=== PATIENT | female | born 1955 | race African-American/Black ===

== ENCOUNTER 2016-11-02 16:06 | Emergency (ER) | payer BC ==
[~2016-11-02] VITALS: Ht 152.4 cm; Wt 56.7 kg
[~2016-11-02 16:06] MED LIST: ASPI-605 PO; ATEN100T PO; LEVE250T2 PO; LEVO75TA11 PO; PANT40SU PO; PHEN100C4 PO; SPIR50TA3 PO
--- NOTE | 2016-11-02 16:06 | NUR ---
"I FELT TIGHTNESS ON MY FACE AND NUMBNESS ON BOTH ARMS" X 3 DAYS. GOWNED PT. PLACED ON MONITOR. AWAITING MD ORDER
--- NOTE | 2016-11-02 16:23 | NUR ---
EKG IN PROGRESS
[2016-11-02 16:44] LABS: BASOPHILS # (AUTO) 0.1 /CMM (0.0-0.2); BASOPHILS % (AUTO) 1.1 % (0.0-2.0); EOSINOPHILS # (AUTO) 0.1 /CMM (0.0-0.7); EOSINOPHILS % (AUTO) 1.7 % (0.0-6.0); HEMATOCRIT 38 % (33-45); HEMOGLOBIN 12.6 g/dL (11.5-14.8); LYMPHOCYTES # (AUTO) 1.1 /CMM (0.8-4.8); LYMPHOCYTES % (AUTO) 20.3 % (20.0-44.0); MEAN CORPUSCULAR HEMOGLOBIN 31 PG (26.0-33.0); MEAN CORPUSCULAR HGB CONC 33 g/dl (31.0-36.0); MEAN CORPUSCULAR VOLUME 93 fL (82-100); MONOCYTES # (AUTO) 0.6 /CMM (0.1-1.30); MONOCYTES % (AUTO) 10.2 % (2.0-12.0); NEUTROPHILS # (AUTO) 3.6 /CMM (1.8-8.9); NEUTROPHILS % (AUTO) 66.7 % (43.0-81.0); PLATELET COUNT (AUTO) 302 /CMM (150-450); RDW COEFFICIENT OF VARIATION 13.8 (11.5-15.0); RED BLOOD CELL COUNT(AUTO) 4.09 MIL/uL (4.0-5.2); WHITE BLOOD COUNT (AUTO) 5.5 K/uL (4.3-11.0)
[2016-11-02 16:45] LABS: CALCIUM, SERUM 8.7 mg/dL (8.5-10.1); CARBON DIOXIDE 26 mmol/L (21-32); CHLORIDE 102 mmol/L (98-107); GLUCOSE 101 mg/dL (74-106); POTASSIUM 3.8 mmol/L (3.5-5.1); SODIUM SERUM 138 mmol/L (136-145); UREA NITROGEN, BLOOD 19 mg/dL (7-18)
[2016-11-02 16:54] LABS: TROPONIN I < 0.017 ng/mL (0.00-0.056)
[2016-11-02 17:18] LABS: THYROID STIMULATING HORMONE 0.707 uIU/mL (0.358-3.74)
[2016-11-02 17:27] LABS: PHENYTOIN (DILANTIN) 8.3 ug/ml (10.0-20.0)
[2016-11-02 17:35] VITALS: BP 148/92
== END 2016-11-02 17:36 | disposition home or self-care (01) ==
LOC: ER 16:09
DX: R20.2 Paresthesia of skin (principal); F41.9 Anxiety disorder, unspecified; Z88.8 Allergy status to other drugs, medicaments and biological substances; I10 Essential (primary) hypertension
CPT/HCPCS: 36415; 80048; 80185; 84439; 84443; 84484; 85025; 93005; 99285; A4606; Z7610

== ENCOUNTER 2017-11-04 14:07 | Emergency (ER) | payer BC ==
[~2017-11-04] VITALS: Ht 152.4 cm; Wt 59.0 kg
[~2017-11-04 14:07] MED LIST changes: -SPIR50TA3 PO; +SPIR50TA5 PO
--- NOTE | 2017-11-04 14:15 | NUR ---
BIB RA FROM WORK,WITNESSED SEIZURE, COMPLIANT W/ HER DILANTIN. NO ORAL TRAUMA NOTED. SEEN BY MD FOR EVAL. PT AAOX4. VSS. SAFETY AND COMFORT MEASURES PROVIDED. WILL MONITOR.
--- NOTE | 2017-11-04 16:20 | NUR ---
Pt ambulatory with a steady gait.
--- NOTE | 2017-11-04 16:39 | NUR ---
IV removed. Catheter intact and site benign. Pressure and 4x4 applied to site. No bleeding noted.
--- NOTE | 2017-11-04 16:41 | NUR ---
Patient discharged to home in stable condition. Written and verbal after care instructions given. Patient verbalizes understanding of instruction. Family member picked up patient to drive her home.
[2017-11-04 16:42] VITALS: BP 156/87
== END 2017-11-04 16:42 | disposition home or self-care (01) ==
LOC: ER 14:09
DX: G40.909 Epilepsy, unspecified, not intractable, without status epilepticus (principal); I10 Essential (primary) hypertension; F41.9 Anxiety disorder, unspecified; Z88.8 Allergy status to other drugs, medicaments and biological substances; Z79.82 Long term (current) use of aspirin; Z79.899 Other long term (current) drug therapy
CPT/HCPCS: 36415; 80185; 99283; A4606; Z7610

== ENCOUNTER 2017-11-21 09:50 | Emergency (ER) | payer BC ==
[~2017-11-21] VITALS: Ht 152.4 cm; Wt 58.5 kg
--- NOTE | 2017-11-21 10:00 | NUR ---
DIYA 89 FROM HOME C/O TINGLING AND CHEST TIGHTNESS SINCE THIS AM. ADMITS TO TAKING ENERGEY SUPPLEMENT THIS AM. A/OX 4, BREATHING EVEN AND UNLABORED. NO SOB, NAD, VITALS STABLE. NO NEURO DEFICITS NOTED. SAFETY AND COMFORT MEASURES IN PLACE. DR. CORDON AT BEDSIDE FOR EVAL.
[2017-11-21 10:23] LABS: BASOPHILS # (AUTO) 0.1 /CMM (0.0-0.2); BASOPHILS % (AUTO) 1.8 % (0.0-2.0); HEMATOCRIT 42 % (33-45); HEMOGLOBIN 13.5 g/dL (11.5-14.8); LYMPHOCYTES # (AUTO) 1.3 /CMM (0.8-4.8); LYMPHOCYTES % (AUTO) 33.6 % (20.0-44.0); MEAN CORPUSCULAR HEMOGLOBIN 30 PG (26.0-33.0); MEAN CORPUSCULAR HGB CONC 32 g/dl (31.0-36.0); MEAN CORPUSCULAR VOLUME 94 fL (82-100); MONOCYTES # (AUTO) 0.3 /CMM (0.1-1.30); MONOCYTES % (AUTO) 7.8 % (2.0-12.0); NEUTROPHILS # (AUTO) 2.1 /CMM (1.8-8.9); NEUTROPHILS % (AUTO) 53.8 % (43.0-81.0); PLATELET COUNT (AUTO) 314 /CMM (150-450); RED BLOOD CELL COUNT(AUTO) 4.45 MIL/uL (4.0-5.2); WHITE BLOOD COUNT (AUTO) 3.9 K/uL (4.3-11.0)
--- NOTE | 2017-11-21 10:30 | NUR ---
TURBINE ASSEMBLER AT BEDSIDE FOR BLOOD DRAW.
[2017-11-21 10:32] LABS: CALCIUM, SERUM 8.7 mg/dL (8.5-10.1); CARBON DIOXIDE 31 mmol/L (21-32); CHLORIDE 101 mmol/L (98-107); CREATININE 1.1 mg/dL (0.6-1.3); GLUCOSE 139 mg/dL (74-106); POTASSIUM 3.6 mmol/L (3.5-5.1); SODIUM SERUM 135 mmol/L (136-145); TROPONIN I < 0.017 ng/mL (0.00-0.056)
[2017-11-21 10:46] LABS: UREA NITROGEN, BLOOD 12 mg/dL (7-18)
[2017-11-21 11:21] VITALS: BP 138/92
--- NOTE | 2017-11-21 11:22 | NUR ---
Patient discharged to home in stable condition. Written and verbal after care instructions given. Patient verbalizes understanding of instruction.
== END 2017-11-21 11:22 | disposition home or self-care (01) ==
LOC: ER 09:51
DX: F41.0 Panic disorder [episodic paroxysmal anxiety] (principal); F45.8 Other somatoform disorders; I10 Essential (primary) hypertension; F41.9 Anxiety disorder, unspecified; E03.9 Hypothyroidism, unspecified; G40.909 Epilepsy, unspecified, not intractable, without status epilepticus; Z87.42 Personal history of other diseases of the female genital tract; Z88.8 Allergy status to other drugs, medicaments and biological substances; Z79.82 Long term (current) use of aspirin; Z79.899 Other long term (current) drug therapy
CPT/HCPCS: 36415; 80048; 84484; 85025; 93005; 99285; A4606; Z7610

== ENCOUNTER 2018-01-24 09:22 | Emergency (ER) | payer BC ==
[~2018-01-24] VITALS: Ht 152.4 cm; Wt 54.4 kg
--- NOTE | 2018-01-24 09:45 | NUR ---
PT BIB SELF. COMPLAINING OF "MY FACE WAS FEELING TINGLY AND IM FEELING A BIT WEAK. " PT AOX4. AMBULATORY W/STEADY GAIT. NO SOB NOTED. NO ACUTE DISTRESS NOTED. WILL CONTINUE TO MONITOR. WAITING FOR MD RODGERS.
--- NOTE | 2018-01-24 09:55 | NUR ---
AT BEDSIDE. URINE COLLECTED.
[2018-01-24 10:09] LABS: BASOPHILS % (AUTO) 1.5 % (0.0-2.0); EOSINOPHILS % (AUTO) 1.9 % (0.0-6.0); HEMATOCRIT 41 % (33-45); LYMPHOCYTES # (AUTO) 0.7 /CMM (0.8-4.8); MEAN CORPUSCULAR HGB CONC 35 g/dl (31.0-36.0); MEAN CORPUSCULAR VOLUME 95 fL (82-100); MONOCYTES # (AUTO) 0.3 /CMM (0.1-1.30); MONOCYTES % (AUTO) 9.4 % (2.0-12.0); NEUTROPHILS # (AUTO) 1.8 /CMM (1.8-8.9); NEUTROPHILS % (AUTO) 63.2 % (43.0-81.0); PLATELET COUNT (AUTO) 238 /CMM (150-450); RED BLOOD CELL COUNT(AUTO) 4.29 MIL/uL (4.0-5.2); WHITE BLOOD COUNT (AUTO) 2.8 K/uL (4.3-11.0)
[2018-01-24 10:10] LABS: APPEARANCE,URINE Clear (CLEAR); BILIRUBIN,URINE Negative (NEGATIVE); BLOOD, URINE Trace-intact Ery/uL (NEGATIVE); COLOR,URINE Yellow (YELLOW); KETONES,URINE Negative (NEGATIVE); LEUKOCYTE ESTERASE ,URINE Small (NEGATIVE); NITRITE, URINE Negative (NEGATIVE); PH,URINE 5.5 (5.0-8.0); PROTEIN,URINE Negative (NEGATIVE); UGLUCOSE Negative (NEGATIVE); UROBILINOGEN,URINE 0.2 EU/dL (0.2)
[2018-01-24 10:16] LABS: BACTERIA,URINE Few /HPF (None Seen); SQUAMOUS EPITHELIAL CELL,UR Few /HPF (None Seen)
[2018-01-24 10:22] LABS: ALANINE AMINOTRANSFERASE 25 U/L (12-78); ALBUMIN 3.7 g/dL (3.4-5.0); ALCOHOL, BLOOD < 3 mg/dL (0-0); ALKALINE PHOSPHATASE 81 U/L (46-116); ASPARTATE AMINOTRANSFERASE 21 U/L (15-37); BILIRUBIN,DIRECT 0.1 mg/dL (0.0-0.2); BILIRUBIN,TOTAL 0.2 mg/dL (0.2-1.0); CARBON DIOXIDE 32 mmol/L (21-32); CHLORIDE 102 mmol/L (98-107); GLUCOSE 117 mg/dL (74-106); POTASSIUM 3.4 mmol/L (3.5-5.1); SODIUM SERUM 140 mmol/L (136-145); TOTAL PROTEIN, SERUM 7.9 g/dL (6.4-8.2); UREA NITROGEN, BLOOD 11 mg/dL (7-18)
[2018-01-24 10:24] LABS: PHENYTOIN (DILANTIN) 7.4 ug/ml (10.0-20.0)
[2018-01-24 10:46] VITALS: BP 148/98
== END 2018-01-24 10:47 | disposition home or self-care (01) ==
LOC: ER 09:27
DX: R20.2 Paresthesia of skin (principal); R79.1 Abnormal coagulation profile; I10 Essential (primary) hypertension; F41.9 Anxiety disorder, unspecified; G40.909 Epilepsy, unspecified, not intractable, without status epilepticus; Z88.8 Allergy status to other drugs, medicaments and biological substances; Z79.82 Long term (current) use of aspirin; Z79.899 Other long term (current) drug therapy
CPT/HCPCS: 36415; 71045-TC; 80048-TC; 80076-TC; 80185-TC; 81000-TC; 85025-TC; 87086-TC; A4606; G0480; Z7610

== ENCOUNTER 2018-02-17 04:59 | Emergency (ER) | payer BC ==
[~2018-02-17] VITALS: Ht 152.4 cm; Wt 54.4 kg
--- NOTE | 2018-02-17 05:05 | NUR ---
PT CAME TO THE ER WITH THE COMPLAINT OF FAST HEART RATE, PT PLACED ON MONITOR HR WITHIN NORMAL LIMITS, BP ELEVATED. PT APPEARED ANXIOUS PER TRIAGE PT VAPED CBD APPRENTICE/LINEMAN.
--- NOTE | 2018-02-17 05:10 | NUR ---
DR. CLARKE AT BEDSIDE.
[2018-02-17] MEDS ORDERED: LABETALOL HCL (100MG) 100 MG TABLET ONE (05:30)
[2018-02-17] MEDS ORDERED: LORAZEPAM 1 MG TABLET ONE (05:30)
[2018-02-17] MEDS ORDERED: LABETALOL HCL (100MG) 100 MG TABLET PO ONE (05:30)
[2018-02-17] MEDS ORDERED: LORAZEPAM 1 MG TABLET PO ONE (05:30)
--- NOTE | 2018-02-17 05:30 | NUR ---
PT BP DOWNWARD TRENDING, STILL ELEVATED. AWARE.
--- NOTE | 2018-02-17 05:35 | NUR ---
HR 93, BP 164/127, SPO2 98%, RR 14
--- NOTE | 2018-02-17 05:43 | NUR ---
BP 164/107, SPO2- 97% RR- 14 HR- 81
[2018-02-17 06:47] VITALS: BP 141/99
== END 2018-02-17 06:48 | disposition home or self-care (01) ==
LOC: ER 05:01
DX: I10 Essential (primary) hypertension (principal); R00.2 Palpitations; F41.9 Anxiety disorder, unspecified; R00.0 Tachycardia, unspecified; R56.9 Unspecified convulsions; E28.2 Polycystic ovarian syndrome; F17.200 Nicotine dependence, unspecified, uncomplicated; Z79.82 Long term (current) use of aspirin; Z88.8 Allergy status to other drugs, medicaments and biological substances
CPT/HCPCS: A4606; Z7610

== ENCOUNTER 2018-03-30 11:13 | Emergency (ER) | payer BC ==
[~2018-03-30] VITALS: Ht 149.9 cm; Wt 52.2 kg
[2018-03-30] MEDS ORDERED: CLONIDINE HCL 0.1 MG TABLET PO ONE (11:30)
[2018-03-30 11:40] LABS: BASOPHILS % (AUTO) 1.2 % (0.0-2.0); EOSINOPHILS % (AUTO) 1.8 % (0.0-6.0); HEMATOCRIT 41 % (33-45); HEMOGLOBIN 13.9 g/dL (11.5-14.8); LYMPHOCYTES # (AUTO) 0.8 /CMM (0.8-4.8); LYMPHOCYTES % (AUTO) 24.7 % (20.0-44.0); MEAN CORPUSCULAR HGB CONC 34 g/dl (31.0-36.0); MEAN CORPUSCULAR VOLUME 97 fL (82-100); MONOCYTES # (AUTO) 0.3 /CMM (0.1-1.30); MONOCYTES % (AUTO) 8.1 % (2.0-12.0); NEUTROPHILS # (AUTO) 2.2 /CMM (1.8-8.9); NEUTROPHILS % (AUTO) 64.2 % (43.0-81.0); PLATELET COUNT (AUTO) 268 /CMM (150-450); RED BLOOD CELL COUNT(AUTO) 4.26 MIL/uL (4.0-5.2); WHITE BLOOD COUNT (AUTO) 3.4 K/uL (4.3-11.0)
[2018-03-30 11:47] LABS: CALCIUM, SERUM 9.3 mg/dL (8.5-10.1); CREATININE 0.9 mg/dL (0.6-1.3); POTASSIUM 3.9 mmol/L (3.5-5.1)
[2018-03-30 12:50] VITALS: BP 151/97
== END 2018-03-30 12:51 | disposition home or self-care (01) ==
LOC: ER 11:15
DX: I10 Essential (primary) hypertension (principal); E07.9 Disorder of thyroid, unspecified; F41.9 Anxiety disorder, unspecified; F17.200 Nicotine dependence, unspecified, uncomplicated; Z79.899 Other long term (current) drug therapy; Z79.82 Long term (current) use of aspirin; Z88.8 Allergy status to other drugs, medicaments and biological substances
CPT/HCPCS: 36415; 80048-TC; 85025-TC

== ENCOUNTER 2018-07-13 11:47 | Emergency (ER) | payer BC ==
[~2018-07-13] VITALS: Ht 152.4 cm; Wt 59.4 kg
[~2018-07-13 11:47] MED LIST changes: -LEVE250T2 PO; -PANT40SU PO
--- NOTE | 2018-07-13 12:18 | NUR ---
patient wheeled for ct scan.
[2018-07-13 12:20] LABS: BASOPHILS % (AUTO) 0.3 % (0.0-2.0); EOSINOPHILS % (AUTO) 0.2 % (0.0-6.0); HEMATOCRIT 44 % (33-45); HEMOGLOBIN 14.9 g/dL (11.5-14.8); LYMPHOCYTES # (AUTO) 0.5 /CMM (0.8-4.8); LYMPHOCYTES % (AUTO) 5.4 % (20.0-44.0); MEAN CORPUSCULAR HGB CONC 34 g/dl (31.0-36.0); MEAN CORPUSCULAR VOLUME 96 fL (82-100); MONOCYTES # (AUTO) 0.5 /CMM (0.1-1.30); MONOCYTES % (AUTO) 4.9 % (2.0-12.0); NEUTROPHILS # (AUTO) 8.3 /CMM (1.8-8.9); NEUTROPHILS % (AUTO) 89.2 % (43.0-81.0); PLATELET COUNT (AUTO) 293 /CMM (150-450); WHITE BLOOD COUNT (AUTO) 9.3 K/uL (4.3-11.0)
[2018-07-13 12:26] LABS: CALCIUM, SERUM 8.8 mg/dL (8.5-10.1)
--- NOTE | 2018-07-13 12:30 | NUR ---
PATIENT BIB [id number], C/O SOW & NAUSEA. PT STS POSSIBLY HAD SZ LAST NIGHT, WOKE UP W/ SEVERE DIZZINESS & DRIED BLOOD ON CHEEK, NO TONGUE LAC SEEN. ON ROOM AIR, BREATHING EVENLY AND UNLABORED. KEPT COMFORTABLE, WILL CONTINUE TO MONITOR ACCORDINGLY,
[2018-07-13] MEDS ORDERED: KETOROLAC TROMETHAMINE 15 MG/ML VIAL ONE (13:41)
[2018-07-13 15:47] VITALS: BP 145/88
--- NOTE | 2018-07-13 15:51 | NUR ---
Patient discharged to home in stable condition. Written and verbal after care instructions given. Patient verbalizes understanding of instruction.IV removed. Catheter intact and site benign. Pressure and 4x4 applied to site. No bleeding noted.
== END 2018-07-13 15:51 | disposition home or self-care (01) ==
LOC: ER 11:49
DX: G40.909 Epilepsy, unspecified, not intractable, without status epilepticus (principal); R51 Headache; I10 Essential (primary) hypertension; F41.9 Anxiety disorder, unspecified; F17.200 Nicotine dependence, unspecified, uncomplicated; Z79.82 Long term (current) use of aspirin; Z88.6 Allergy status to analgesic agent
CPT/HCPCS: 36415; 70450-TC; 71045-TC; 80048-TC; 80185-TC; 85025-TC; J1885

== ENCOUNTER 2018-07-16 16:46 | Emergency (ER) | payer BC ==
[~2018-07-16] VITALS: Ht 165.1 cm; Wt 65.4 kg
--- NOTE | 2018-07-16 17:00 | NUR ---
AAOX3, BIBRA FROM WORK C/O HYPERTENSION. RR IS EVEN AND UNLABORED WITH NAD NOTED. SKIN IS WARM AND DRY. AWAITING MD FOR EVAL. PLACED ON THE MONITOR.
[2018-07-16 17:27] LABS: BASOPHILS % (AUTO) 0.9 % (0.0-2.0); EOSINOPHILS % (AUTO) 1.3 % (0.0-6.0); HEMATOCRIT 41 % (33-45); HEMOGLOBIN 13.7 g/dL (11.5-14.8); LYMPHOCYTES % (AUTO) 20.5 % (20.0-44.0); MEAN CORPUSCULAR HGB CONC 34 g/dl (31.0-36.0); MEAN CORPUSCULAR VOLUME 98 fL (82-100); MONOCYTES # (AUTO) 0.4 /CMM (0.1-1.30); MONOCYTES % (AUTO) 8.2 % (2.0-12.0); NEUTROPHILS # (AUTO) 3.5 /CMM (1.8-8.9); NEUTROPHILS % (AUTO) 69.1 % (43.0-81.0); PLATELET COUNT (AUTO) 256 /CMM (150-450); RED BLOOD CELL COUNT(AUTO) 4.21 MIL/uL (4.0-5.2)
[2018-07-16] MEDS ORDERED: NIMODIPINE (30MG) 30 MG CAPSULE ONE (17:30)
[2018-07-16] MEDS ORDERED: NIMODIPINE (30MG) 30 MG CAPSULE PO ONE (17:30)
[2018-07-16 17:38] LABS: APPEARANCE,URINE Clear (CLEAR); BILIRUBIN,URINE Negative (NEGATIVE); BLOOD, URINE Trace-intact Ery/uL (NEGATIVE); COLOR,URINE Yellow (YELLOW); KETONES,URINE Negative (NEGATIVE); LEUKOCYTE ESTERASE ,URINE Negative (NEGATIVE); NITRITE, URINE Negative (NEGATIVE); PROTEIN,URINE Trace mg/dl (NEGATIVE); UGLUCOSE Negative (NEGATIVE); UROBILINOGEN,URINE 0.2 EU/dL (0.2)
[2018-07-16 17:39] LABS: BACTERIA,URINE Few /HPF (None Seen); SQUAMOUS EPITHELIAL CELL,UR Few /HPF (None Seen); WBC,URINE 0-2 /HPF (0-3)
[2018-07-16 17:48] LABS: CALCIUM, SERUM 8.8 mg/dL (8.5-10.1); CARBON DIOXIDE 27 mmol/L (21-32); CHLORIDE 103 mmol/L (98-107); GLUCOSE 162 mg/dL (74-106); POTASSIUM 3.7 mmol/L (3.5-5.1); SODIUM SERUM 142 mmol/L (136-145); UREA NITROGEN, BLOOD 12 mg/dL (7-18)
[2018-07-16 17:54] LABS: ALANINE AMINOTRANSFERASE 28 U/L (12-78); ALBUMIN 3.6 g/dL (3.4-5.0); ALKALINE PHOSPHATASE 92 U/L (46-116); ASPARTATE AMINOTRANSFERASE 26 U/L (15-37); BILIRUBIN,DIRECT 0.1 mg/dL (0.0-0.2); BILIRUBIN,TOTAL 0.3 mg/dL (0.2-1.0); TOTAL PROTEIN, SERUM 7.8 g/dL (6.4-8.2)
--- NOTE | 2018-07-16 19:15 | NUR ---
REPORT GIVEN TO ELENO GARSIA FOR FABIOLA.
--- NOTE | 2018-07-16 19:55 | NUR ---
Patient is resting comfortably in bed. Easily aroused. VSS. NAD. AA/OX4
--- NOTE | 2018-07-16 20:05 | NUR ---
Patient discharged to home in stable condition. Written and verbal after care instructions given. Patient verbalizes understanding of instruction. IV removed. Catheter intact and site benign. Pressure and 4x4 applied to site. No bleeding noted. AMBULATED WITH STABLE GAIT. NAD. VSS
[2018-07-16 20:06] VITALS: BP 158/80
== END 2018-07-16 20:07 | disposition home or self-care (01) ==
LOC: ER 16:50
DX: I16.0 Hypertensive urgency (principal); R51 Headache; E03.9 Hypothyroidism, unspecified; R56.9 Unspecified convulsions; F41.9 Anxiety disorder, unspecified; F17.200 Nicotine dependence, unspecified, uncomplicated; Z79.82 Long term (current) use of aspirin; Z88.8 Allergy status to other drugs, medicaments and biological substances
CPT/HCPCS: 36415; 70450-TC; 71045-TC; 80048-TC; 80076-TC; 81000-TC; 84484-TC; 85025-TC; 85378-TC

== ENCOUNTER 2018-07-17 17:23 | Emergency (ER) | payer BC ==
[~2018-07-17] VITALS: Ht 152.4 cm; Wt 56.7 kg
--- NOTE | 2018-07-17 18:55 | NUR ---
PT BIB RA WITH A C/O FACEPAIN AND HYPERTENSION. PT IS AA &O X4. AMBULATORY WITH A STEADY GAIT. PT WAS TRIAGED AND WAS IN THE WAITING ROOM. PT IS NOW IS ROOM 12. PT WAS PLACED ON THE MONITOR AND CONTINUOUS PULSE OX.
[2018-07-17] MEDS ORDERED: CLONIDINE HCL 0.1 MG TABLET ONE (20:29)
[2018-07-17] MEDS ORDERED: CLONIDINE HCL 0.1 MG TABLET PO ONE (20:30)
[2018-07-17 20:35] VITALS: BP 180/103
--- NOTE | 2018-07-17 20:39 | NUR ---
Patient discharged to home in stable condition. Written and verbal after care instructions given. Patient verbalizes understanding of instruction AND RX. PT'S IS AT THE BEDSIDE AND IS DRIVING THE PT HOME. MD IS AWARE OF PT'S D/C BP AND PT REC'D MEDICATION DIRECTOR PERSONAL AT MD'S REQUEST. PT AMBULATED OUT WITH A STEADY GAIT.
[2018-07-18] MEDS ORDERED: SPIR50TA5 PO (17:12)
[2018-07-18] MEDS ORDERED: LEVO75TA7 PO (17:12)
[2018-07-18] MEDS ORDERED: ATEN100T PO (17:12)
[2018-07-18] MEDS ORDERED: CLON-418 PO (17:12)
[2018-07-18] MEDS ORDERED: PHEN100C4 PO (17:12)
== END 2018-07-17 20:40 | disposition home or self-care (01) ==
LOC: ER 17:26
DX: I10 Essential (primary) hypertension (principal); G40.909 Epilepsy, unspecified, not intractable, without status epilepticus; E03.9 Hypothyroidism, unspecified; F41.9 Anxiety disorder, unspecified; F17.200 Nicotine dependence, unspecified, uncomplicated; Z79.82 Long term (current) use of aspirin; Z88.6 Allergy status to analgesic agent
CPT/HCPCS: 36415; 80185-TC

== ENCOUNTER 2018-07-18 16:00 | Emergency (ER) | payer BC ==
[~2018-07-18] VITALS: Ht 152.4 cm; Wt 56.7 kg
--- NOTE | 2018-07-18 16:14 | NUR ---
BIB RA 102 FOR GENERALIZED BODY PAIN/PRESSURE. C/O PRESSURE IN HEAD. PT IS HYPERTENSIVE, AMBULATORY, RR EVEN AND UNLABORED ON RA. APPEARS ANXIOUS. DENIES SOB, DIZZINESS, WEAKNESS, N/V. HOOKED TO MONITOR. READY FOR EVAL.
--- NOTE | 2018-07-18 16:30 | NUR ---
UPON DISCHARGING, PT CONTINUES TO BE HYPERTENSIVE. BRITTANI GARCIA.
--- NOTE | 2018-07-18 17:00 | NUR ---
PER PA, PT TOOK CLONIDINE VICE PRESIDENT, PT CONFIRMED. WILL WAIT 30 MIN TO MONITOR FOR CHANGE
[2018-07-18] MEDS ORDERED: LEVO75TA7 PO (17:12)
[2018-07-18] MEDS ORDERED: SPIR50TA5 PO (17:12)
[2018-07-18] MEDS ORDERED: ATEN100T PO (17:12)
[2018-07-18] MEDS ORDERED: CLON-418 PO (17:12)
[2018-07-18] MEDS ORDERED: PHEN100C4 PO (17:12)
[2018-07-18] MEDS ORDERED: NIMODIPINE (30MG) 30 MG CAPSULE PO ONE (17:30)
[2018-07-18] MEDS ORDERED: NIMODIPINE (30MG) 30 MG CAPSULE ONE (17:32)
--- NOTE | 2018-07-18 19:08 | NUR ---
Patient discharged to home in stable condition. Written and verbal after care instructions given. Patient verbalizes understanding of instruction.
[2018-07-18 19:11] VITALS: BP 180/107
== END 2018-07-18 19:12 | disposition home or self-care (01) ==
LOC: ER 16:01
DX: I10 Essential (primary) hypertension (principal); E03.9 Hypothyroidism, unspecified; R56.9 Unspecified convulsions; F41.9 Anxiety disorder, unspecified; F17.200 Nicotine dependence, unspecified, uncomplicated; Z79.82 Long term (current) use of aspirin; Z88.5 Allergy status to narcotic agent

== ENCOUNTER 2018-10-19 09:41 | Emergency (ER) | payer BC ==
[~2018-10-19] VITALS: Ht 154.9 cm; Wt 56.7 kg
[~2018-10-19 09:41] MED LIST changes: -ASPI-605 PO; +CLON-418 PO; -LEVO75TA11 PO; +LEVO75TA7 PO
[2018-10-19 10:14] LABS: BASOPHILS % (AUTO) 0.7 % (0.0-2.0); EOSINOPHILS % (AUTO) 1.1 % (0.0-6.0); HEMATOCRIT 44 % (33-45); HEMOGLOBIN 14.8 g/dL (11.5-14.8); LYMPHOCYTES # (AUTO) 0.9 /CMM (0.8-4.8); LYMPHOCYTES % (AUTO) 13.1 % (20.0-44.0); MEAN CORPUSCULAR HGB CONC 34 g/dl (31.0-36.0); MEAN CORPUSCULAR VOLUME 95 fL (82-100); MONOCYTES # (AUTO) 0.4 /CMM (0.1-1.30); MONOCYTES % (AUTO) 6.3 % (2.0-12.0); NEUTROPHILS # (AUTO) 5.5 /CMM (1.8-8.9); NEUTROPHILS % (AUTO) 78.8 % (43.0-81.0); PLATELET COUNT (AUTO) 235 /CMM (150-450); RED BLOOD CELL COUNT(AUTO) 4.62 MIL/uL (4.0-5.2); WHITE BLOOD COUNT (AUTO) 6.9 K/uL (4.3-11.0)
[2018-10-19 10:22] LABS: CALCIUM, SERUM 9.5 mg/dL (8.5-10.1); CARBON DIOXIDE 31 mmol/L (21-32); CHLORIDE 101 mmol/L (98-107); GLUCOSE 106 mg/dL (74-106); POTASSIUM 4.5 mmol/L (3.5-5.1); SODIUM SERUM 140 mmol/L (136-145); UREA NITROGEN, BLOOD 12 mg/dL (7-18)
[2018-10-19 11:00] VITALS: BP 166/94
== END 2018-10-19 11:02 | disposition home or self-care (01) ==
LOC: ER 09:47
DX: F41.9 Anxiety disorder, unspecified (principal); I10 Essential (primary) hypertension; F17.200 Nicotine dependence, unspecified, uncomplicated; Z88.8 Allergy status to other drugs, medicaments and biological substances; Z79.899 Other long term (current) drug therapy
CPT/HCPCS: 36415; 80048-TC; 84484-TC; 85025-TC

== ENCOUNTER 2019-01-19 20:51 | Emergency (ER) | payer BC ==
[~2019-01-19] VITALS: Ht 154.9 cm; Wt 56.7 kg
--- NOTE | 2019-01-19 21:04 | NUR ---
bibs for c/o high blood pressure. -dizziness. -h/a. pt has received clonidine 0.1mg po at 1999. pt is placed on a monitor .
[2019-01-19 21:28] LABS: BASOPHILS % (AUTO) 0.9 % (0.0-2.0); EOSINOPHILS % (AUTO) 1.6 % (0.0-6.0); HEMATOCRIT 40 % (33-45); HEMOGLOBIN 13.3 g/dL (11.5-14.8); LYMPHOCYTES # (AUTO) 1.4 /CMM (0.8-4.8); LYMPHOCYTES % (AUTO) 36.7 % (20.0-44.0); MEAN CORPUSCULAR HGB CONC 33 g/dl (31.0-36.0); MEAN CORPUSCULAR VOLUME 96 fL (82-100); MONOCYTES # (AUTO) 0.4 /CMM (0.1-1.30); MONOCYTES % (AUTO) 9.7 % (2.0-12.0); NEUTROPHILS # (AUTO) 1.9 /CMM (1.8-8.9); NEUTROPHILS % (AUTO) 51.1 % (43.0-81.0); PLATELET COUNT (AUTO) 243 /CMM (150-450); RED BLOOD CELL COUNT(AUTO) 4.18 MIL/uL (4.0-5.2); WHITE BLOOD COUNT (AUTO) 3.8 K/uL (4.3-11.0)
[2019-01-19] MEDS ORDERED: hydrALAZINE HCL IV 20 MG VIAL IV ONE (21:30)
[2019-01-19 21:36] LABS: CREATININE 0.9 mg/dL (0.6-1.3); POTASSIUM 3.6 mmol/L (3.5-5.1)
[2019-01-19] MEDS ORDERED: hydrALAZINE HCL IV 20 MG VIAL ONE (21:43)
--- NOTE | 2019-01-19 23:04 | NUR ---
Patient discharged to home in stable condition. Written and verbal after care instructions given. Patient verbalizes understanding of instruction.
[2019-01-19 23:11] VITALS: BP 160/91
== END 2019-01-19 23:11 | disposition home or self-care (01) ==
LOC: ER 20:53
DX: I10 Essential (primary) hypertension (principal); F41.9 Anxiety disorder, unspecified; F17.200 Nicotine dependence, unspecified, uncomplicated; Z88.8 Allergy status to other drugs, medicaments and biological substances; Z79.899 Other long term (current) drug therapy
CPT/HCPCS: 36415; 71045; 80048; 85025; 93005; 96374; 99284; J0360

== ENCOUNTER 2019-02-03 04:42 | Emergency (ER) | payer BC ==
[~2019-02-03] VITALS: Ht 152.4 cm; Wt 56.7 kg
--- NOTE | 2019-02-03 05:02 | NUR ---
PT BIB RA WITH A C/O ELEVATED BP WITH CHEST PAIN. PT STATED THAT THE PAIN WOKE HER UP. PT IS C/O A SQUEEZING PAIN THAT IS INTERMITTENT.
[2019-02-03] MEDS ORDERED: NITROGLYCERIN PACKET 1 GM PACKET ONE (05:06)
[2019-02-03] MEDS ORDERED: NITROGLYCERIN 0.4 MG/TAB BOTTLE ONE (05:06)
[2019-02-03] MEDS ORDERED: ASPIRIN 81 MG TAB.CHEW ONE (05:07)
--- NOTE | 2019-02-03 05:10 | NUR ---
DR CLARKE AT THE BEDSIDE.
[2019-02-03 05:14] LABS: BASOPHILS # (AUTO) 0.1 /CMM (0.0-0.2); BASOPHILS % (AUTO) 1.5 % (0.0-2.0); EOSINOPHILS % (AUTO) 3.8 % (0.0-6.0); HEMATOCRIT 38 % (33-45); HEMOGLOBIN 12.5 g/dL (11.5-14.8); LYMPHOCYTES # (AUTO) 1.3 /CMM (0.8-4.8); LYMPHOCYTES % (AUTO) 37.7 % (20.0-44.0); MEAN CORPUSCULAR HGB CONC 33 g/dl (31.0-36.0); MEAN CORPUSCULAR VOLUME 96 fL (82-100); MONOCYTES # (AUTO) 0.3 /CMM (0.1-1.30); MONOCYTES % (AUTO) 9.4 % (2.0-12.0); NEUTROPHILS # (AUTO) 1.6 /CMM (1.8-8.9); NEUTROPHILS % (AUTO) 47.6 % (43.0-81.0); PLATELET COUNT (AUTO) 224 /CMM (150-450); RED BLOOD CELL COUNT(AUTO) 3.94 MIL/uL (4.0-5.2); WHITE BLOOD COUNT (AUTO) 3.5 K/uL (4.3-11.0)
--- NOTE | 2019-02-03 05:15 | NUR ---
1ST NITRO SL GIVEN.
--- NOTE | 2019-02-03 05:20 | NUR ---
2ND NITRO SL GIVEN.
[2019-02-03 05:23] LABS: CALCIUM, SERUM 9.1 mg/dL (8.5-10.1); CARBON DIOXIDE 31 mmol/L (21-32); CHLORIDE 105 mmol/L (98-107); GLUCOSE 98 mg/dL (74-106); POTASSIUM 3.7 mmol/L (3.5-5.1); SODIUM SERUM 141 mmol/L (136-145); UREA NITROGEN, BLOOD 10 mg/dL (7-18)
--- NOTE | 2019-02-03 05:26 | NUR ---
PT IS PAIN FREE AND BP IS NOW 164/91. 3RD NITRO SL GIVEN PER DR CLARKE.
[2019-02-03] MEDS ORDERED: NITROGLYCERIN 0.4 MG/TAB BOTTLE SL ONE (05:30)
[2019-02-03] MEDS ORDERED: ASPIRIN 81 MG TAB.CHEW PO ONE (05:30)
[2019-02-03] MEDS ORDERED: NITROGLYCERIN PACKET 1 GM PACKET TD ONE (05:30)
[2019-02-03 05:36] LABS: ALANINE AMINOTRANSFERASE 25 U/L (12-78); ALBUMIN 3.7 g/dL (3.4-5.0); ALKALINE PHOSPHATASE 64 U/L (46-116); ASPARTATE AMINOTRANSFERASE 22 U/L (15-37); B-TYPE NATRIURETIC PEPTIDE 29 PG/ML (0-125); BILIRUBIN,DIRECT 0.1 mg/dL (0.0-0.2); BILIRUBIN,TOTAL 0.2 mg/dL (0.2-1.0); TOTAL PROTEIN, SERUM 7.4 g/dL (6.4-8.2)
--- NOTE | 2019-02-03 07:08 | NUR ---
PT APPEARS TO BE RESTING COMFORTABLY WITH NO S/S OF PAIN OR DISTRESS. VSS.
--- NOTE | 2019-02-03 07:22 | NUR ---
REPORT RECEIVED FROM DEAN HOUSTON FOR FABIOLA
[2019-02-03] MEDS ORDERED: PHENYTOIN EXTENDED RELEASE 100 MG CAPSULE PO ONE ×2 (07:30)
--- NOTE | 2019-02-03 08:42 | NUR ---
IV removed. Catheter intact and site benign. Pressure and 4x4 applied to site. No bleeding noted.Patient discharged to home in stable condition. Written and verbal after care instructions given. Patient verbalizes understanding of instruction.
[2019-02-03 08:44] VITALS: BP 154/83
== END 2019-02-03 08:45 | disposition home or self-care (01) ==
LOC: ER 04:52
DX: R07.89 Other chest pain (principal); I10 Essential (primary) hypertension; K59.00 Constipation, unspecified; R56.9 Unspecified convulsions; F41.9 Anxiety disorder, unspecified; Z79.899 Other long term (current) drug therapy; Z88.5 Allergy status to narcotic agent
CPT/HCPCS: 36415; 71045-TC; 80048-TC; 80076-TC; 83880; 84484-TC; 85025-TC; 85378-TC

== ENCOUNTER → 2019-02-04 | Emergency (ER) | payer BC ==
[~2019-02-04] VITALS: Ht 152.4 cm; Wt 71.7 kg
[2019-02-04 15:05] VITALS: BP 166/102
--- NOTE | 2019-02-04 15:21 | NUR ---
DR PALMER AT BEDSIDE
[2019-02-04 16:01] LABS: BILIRUBIN,URINE Negative (NEGATIVE); BLOOD, URINE Negative Ery/uL (NEGATIVE); COLOR,URINE Yellow (YELLOW); KETONES,URINE Trace (NEGATIVE); LEUKOCYTE ESTERASE ,URINE Small (NEGATIVE); NITRITE, URINE Negative (NEGATIVE); PH,URINE 6.5 (5.0-8.0); PROTEIN,URINE Negative (NEGATIVE); UGLUCOSE Negative (NEGATIVE); UROBILINOGEN,URINE 0.2 EU/dL (0.2)
[2019-02-04 16:02] LABS: APPEARANCE,URINE SLIGHTLY CLOUDY (CLEAR)
[2019-02-04 16:07] LABS: BACTERIA,URINE None seen /HPF (None Seen); RBC,URINE 0-2 /HPF (0-2); SQUAMOUS EPITHELIAL CELL,UR Few /HPF (None Seen)
--- NOTE | 2019-02-04 17:14 | NUR ---
Patient discharged to home in stable condition. Written and verbal after care instructions given. Patient verbalizes understanding of instruction.
== END | disposition home or self-care (01) ==
LOC: ER 15:06
DX: F41.9 Anxiety disorder, unspecified (principal); I10 Essential (primary) hypertension; G40.909 Epilepsy, unspecified, not intractable, without status epilepticus; E03.9 Hypothyroidism, unspecified; Z88.8 Allergy status to other drugs, medicaments and biological substances; Z79.899 Other long term (current) drug therapy
CPT/HCPCS: 81000-TC

== ENCOUNTER 2019-03-15 10:09 | Emergency (ER) | payer BC ==
[~2019-03-15] VITALS: Ht 160 cm; Wt 59.0 kg
--- NOTE | 2019-03-15 10:28 | NUR ---
[id number], home. dizziness since this am. states systolic b/p reading high. on room air, breathing evenly and unlabored. connected to the monitor and pulse ox. kept comfortable, will continue to monitor accordingly.
[2019-03-15] MEDS ORDERED: CARVEDILOL 6.25 MG TABLET ONE (10:41)
[2019-03-15] MEDS ORDERED: CLONIDINE HCL 0.1 MG TABLET ONE (10:41)
[2019-03-15] MEDS ORDERED: SPIRONOLACTONE 25 MG TABLET ONE (10:41)
[2019-03-15 10:42] LABS: BASOPHILS % (AUTO) 1.2 % (0.0-2.0); EOSINOPHILS % (AUTO) 2.6 % (0.0-6.0); HEMATOCRIT 45 % (33-45); HEMOGLOBIN 14.8 g/dL (11.5-14.8); LYMPHOCYTES # (AUTO) 0.5 /CMM (0.8-4.8); MEAN CORPUSCULAR HGB CONC 33 g/dl (31.0-36.0); MEAN CORPUSCULAR VOLUME 96 fL (82-100); MONOCYTES # (AUTO) 0.2 /CMM (0.1-1.30); MONOCYTES % (AUTO) 6.3 % (2.0-12.0); NEUTROPHILS % (AUTO) 70.9 % (43.0-81.0); PLATELET COUNT (AUTO) 268 /CMM (150-450); RED BLOOD CELL COUNT(AUTO) 4.65 MIL/uL (4.0-5.2); WHITE BLOOD COUNT (AUTO) 2.8 K/uL (4.3-11.0)
--- NOTE | 2019-03-15 10:46 | NUR ---
wheeled patient to ct.
[2019-03-15 10:49] LABS: CALCIUM, SERUM 9.4 mg/dL (8.5-10.1); CREATININE 0.9 mg/dL (0.6-1.3); POTASSIUM 4.1 mmol/L (3.5-5.1)
[2019-03-15 10:55] LABS: ALBUMIN 3.9 g/dL (3.4-5.0); BILIRUBIN,DIRECT 0.1 mg/dL (0.0-0.2); BILIRUBIN,TOTAL 0.4 mg/dL (0.2-1.0); TOTAL PROTEIN, SERUM 8.2 g/dL (6.4-8.2)
[2019-03-15] MEDS ORDERED: CARVEDILOL 6.25 MG TABLET PO ONE (11:00)
[2019-03-15] MEDS ORDERED: CLONIDINE HCL 0.1 MG TABLET PO ONE (11:00)
[2019-03-15] MEDS ORDERED: SPIRONOLACTONE 25 MG TABLET PO ONE (11:00)
[2019-03-15 11:08] LABS: PHENYTOIN (DILANTIN) 9.4 ug/ml (10.0-20.0)
[2019-03-15] MEDS ORDERED: PHENYTOIN EXTENDED RELEASE 100 MG CAPSULE PO ONE ×2 (11:30→11:32)
[2019-03-15 11:44] VITALS: BP 162/111
== END 2019-03-15 11:45 | disposition home or self-care (01) ==
LOC: ER 10:20
DX: G40.909 Epilepsy, unspecified, not intractable, without status epilepticus (principal); I10 Essential (primary) hypertension; F41.9 Anxiety disorder, unspecified; E03.9 Hypothyroidism, unspecified; Z88.8 Allergy status to other drugs, medicaments and biological substances; Z79.899 Other long term (current) drug therapy
CPT/HCPCS: 36415; 70450-TC; 80048-TC; 80076-TC; 80185-TC; 85025-TC

== ENCOUNTER 2019-03-19 17:16 | Emergency (ER) | payer BC ==
[~2019-03-19] VITALS: Ht 160 cm; Wt 59.4 kg
--- NOTE | 2019-03-19 17:24 | NUR ---
ON & OFF CHEST PAIN X 2 YEARS, BLOOD PRESSURE 218/138 AT THE [facility], pt awake, alert, -sob, nad noted, vss, pending md marquez
[2019-03-19] MEDS ORDERED: hydrALAZINE HCL IV 20 MG VIAL ONE ×2 (17:46→18:54)
[2019-03-19 17:49] LABS: BASOPHILS # (AUTO) 0.1 /CMM (0.0-0.2); BASOPHILS % (AUTO) 1.4 % (0.0-2.0); EOSINOPHILS % (AUTO) 3.1 % (0.0-6.0); HEMATOCRIT 42 % (33-45); HEMOGLOBIN 14.1 g/dL (11.5-14.8); LYMPHOCYTES # (AUTO) 1.1 /CMM (0.8-4.8); LYMPHOCYTES % (AUTO) 26.8 % (20.0-44.0); MEAN CORPUSCULAR HGB CONC 34 g/dl (31.0-36.0); MEAN CORPUSCULAR VOLUME 96 fL (82-100); MONOCYTES # (AUTO) 0.4 /CMM (0.1-1.30); MONOCYTES % (AUTO) 10.2 % (2.0-12.0); NEUTROPHILS # (AUTO) 2.3 /CMM (1.8-8.9); NEUTROPHILS % (AUTO) 58.5 % (43.0-81.0); PLATELET COUNT (AUTO) 253 /CMM (150-450); RED BLOOD CELL COUNT(AUTO) 4.36 MIL/uL (4.0-5.2)
[2019-03-19] MEDS ORDERED: hydrALAZINE HCL IV 20 MG VIAL IV ONE ×2 (18:00→19:00)
[2019-03-19 18:02] LABS: CALCIUM, SERUM 10.3 mg/dL (8.5-10.1); CARBON DIOXIDE 33 mmol/L (21-32); CHLORIDE 102 mmol/L (98-107); GLUCOSE 118 mg/dL (74-106); POTASSIUM 3.9 mmol/L (3.5-5.1); SODIUM SERUM 141 mmol/L (136-145); UREA NITROGEN, BLOOD 12 mg/dL (7-18)
[2019-03-19] MEDS ORDERED: LABETALOL HCL IV 100MG VIAL IV ONE (20:30)
[2019-03-19] MEDS ORDERED: LABETALOL HCL IV 100MG VIAL ONE (20:34)
[2019-03-19 20:36] VITALS: BP 181/103
--- NOTE | 2019-03-19 21:23 | NUR ---
Patient discharged to home in stable condition. Written and verbal after care instructions given. Patient verbalizes understanding of instruction. IV removed. Catheter intact and site benign. Pressure and 4x4 applied to site. No bleeding noted.
== END 2019-03-19 21:23 | disposition home or self-care (01) ==
LOC: ER 17:16
DX: I10 Essential (primary) hypertension (principal); G40.909 Epilepsy, unspecified, not intractable, without status epilepticus; F41.9 Anxiety disorder, unspecified; E03.9 Hypothyroidism, unspecified; R00.0 Tachycardia, unspecified; Z79.899 Other long term (current) drug therapy; Z88.8 Allergy status to other drugs, medicaments and biological substances
CPT/HCPCS: 36415; 71045; 80048; 80185; 84443; 84484 ×2; 85025; 93005 ×2; 96374; 96375; 96376; 99284; J0360 ×2; J3490

== ENCOUNTER 2019-06-18 23:23 | Emergency (ER) | payer BC ==
[~2019-06-18] VITALS: Ht 152.4 cm; Wt 56.7 kg
[2019-06-18] MEDS ORDERED: hydrALAZINE HCL IV 20 MG VIAL ONE (23:43)
--- NOTE | 2019-06-18 23:47 | NUR ---
PATIENT CAME TO ER BED 11 C/O HIGH BLOOD PRESSURE. PATIENT STATES THAT SHE NOTICED HER BLOOD PRESSURE BEING HIGH SINCE 2 HOURS AGO AND TOOK MEDICATIONS FOR IT.. PATIENT ALSO STATES THAT SHE THAT SHE HAS TINGLING FEELING ON HER FACE AND HER RIGHT LOWER EXTREMITY. AAOX4. NO SOB. BREATHING EVENLY AND UNLABORED ON ROOM AIR. CONNECTED TO MONITOR.
--- NOTE | 2019-06-18 23:50 | NUR ---
SEEN AND EXAMINED BY
[2019-06-18 23:51] LABS: BASOPHILS # (AUTO) 0.1 /CMM (0.0-0.2); BASOPHILS % (AUTO) 1.2 % (0.0-2.0); EOSINOPHILS % (AUTO) 3.1 % (0.0-6.0); HEMATOCRIT 42 % (33-45); HEMOGLOBIN 14.2 g/dL (11.5-14.8); LYMPHOCYTES # (AUTO) 1.4 /CMM (0.8-4.8); LYMPHOCYTES % (AUTO) 27.9 % (20.0-44.0); MEAN CORPUSCULAR HGB CONC 34 g/dl (31.0-36.0); MEAN CORPUSCULAR VOLUME 96 fL (82-100); MONOCYTES # (AUTO) 0.4 /CMM (0.1-1.30); NEUTROPHILS # (AUTO) 3.1 /CMM (1.8-8.9); NEUTROPHILS % (AUTO) 60.8 % (43.0-81.0); PLATELET COUNT (AUTO) 252 /CMM (150-450); RED BLOOD CELL COUNT(AUTO) 4.42 MIL/uL (4.0-5.2); WHITE BLOOD COUNT (AUTO) 5.1 K/uL (4.3-11.0)
[2019-06-18] MEDS: hydrALAZINE HCL IV 20 MG VIAL IV ONE (23:51)
[2019-06-18 23:58] LABS: CALCIUM, SERUM 9.9 mg/dL (8.5-10.1); CARBON DIOXIDE 32 mmol/L (21-32); CHLORIDE 100 mmol/L (98-107); GLUCOSE 110 mg/dL (74-106); POTASSIUM 4.1 mmol/L (3.5-5.1); SODIUM SERUM 138 mmol/L (136-145); UREA NITROGEN, BLOOD 15 mg/dL (7-18)
[2019-06-19] MEDS ORDERED: hydrALAZINE HCL IV 20 MG VIAL ONE (01:17)
[2019-06-19] MEDS: hydrALAZINE HCL IV 20 MG VIAL IV ONE (01:24)
[2019-06-19] MEDS ORDERED: LORAZEPAM INJ 2 MG/ML VIAL ONE (02:16)
[2019-06-19] MEDS: LORAZEPAM INJ 2 MG/ML VIAL IV ONE (02:24)
--- NOTE | 2019-06-19 02:51 | NUR ---
IV removed. Catheter intact and site benign. Pressure and 4x4 applied to site. No bleeding noted.
--- NOTE | 2019-06-19 02:55 | NUR ---
WILL PICK PATIENT UP.
[2019-06-19 02:57] VITALS: BP 144/76
--- NOTE | 2019-06-19 02:57 | NUR ---
Patient discharged to home in stable condition. Written and verbal after care instructions given. Patient verbalizes understanding of instruction.
--- NOTE | 2019-06-19 02:57 | NUR ---
Patient is ambulatory with a steady gait.
== END 2019-06-19 02:58 | disposition home or self-care (01) ==
LOC: ER 23:28
DX: I10 Essential (primary) hypertension (principal); F41.9 Anxiety disorder, unspecified; R42 Dizziness and giddiness; R56.9 Unspecified convulsions; E03.9 Hypothyroidism, unspecified; Z88.8 Allergy status to other drugs, medicaments and biological substances; Z79.899 Other long term (current) drug therapy
CPT/HCPCS: 36415; 71045; 80048; 84484; 85025; 93005; 96374; 96375; 96376; 99285; J0360 ×2; J2060